=== PATIENT | female | born 1990 | race Caucasian/White ===

== ENCOUNTER 2018-03-27 04:48 | Emergency (ER) | payer BC ==
[~2018-03-27] VITALS: Ht 157.5 cm; Wt 85.3 kg
[2018-03-27 04:54] VITALS: BP 133/72
[2018-03-27] MEDS ORDERED: CLIN300C8 PO (05:45)
[2018-03-27] MEDS ORDERED: OXYC-323 PO (05:45)
[2018-03-27] MEDS ORDERED: MUPI22OI2 TP (05:45)
--- NOTE | 2018-03-27 05:46 | PHYS DOC ---
Past Medical History Past Medical History: No Pertinent History Past Surgical History: No Surgical History Alcohol Use: None Drug Use: None Adult General Chief Complaint Chief Complaint: ABSCESS HPI HPI Patient is a 27-year-old female who presents to the emergency department for evaluation. She was diagnosed with MRSA at [facility] this past Sunday. She was given a prescription for Bactrim, and hydrocodone. She states that the pain has persisted, and she has developed some soft tissue swelling extending to her forehead. She has had some low-grade fevers. She denies any chills. She denies any pain with ocular movement, headache, nausea, vomiting. She states she has had MRSA infections in the past. Palpation of the affected area worsens her pain. There are no alleviating factors to her symptoms. Review of Systems Review of Systems Constitutional: Denies lethargy or chills [] Eyes: Denies change in visual acuity, redness, or eye pain, or drainage [] HENT: Denies nasal congestion or sore throat [] GI: Denies abdominal pain, nausea, vomiting, bloody stools or diarrhea [] : Denies dysuria or hematuria , denies [] Neurologic: Denies headache, focal weakness or sensory changes [] Allergies Allergies Allergies Coded Allergies Type Severity Reaction Last Updated Verified vancomycin Allergy Intermediate Swelling 03/27/18 Yes Physical Exam Physical Exam PHYSICAL EXAM: CONSTITUTIONAL: Well developed, well nourished HEAD: normocephalic, atraumatic. On the left frontotemporal area, there is a kingsley size pustular lesion with a small scab and crater. There is soft tissue swelling extending to the anterior forehead, involving the upper eyelid, mildly , although there is no warmth or fluctuance or definite erythema to this area. EENT: PERRL, EOMI. the globes appear normal. There is no pain with ocular movement. There is no tenderness to palpation to the orbital or periorbital rim. Conjunctivae normal color, sclerae non-icteric; moist mucous membranes. NECK: Supple, non-tender; no meningismus. LUNGS: Lungs CTA, breathing even and unlabored. Normal air movement. HEART: Regular rate and rhythm, no murmur CHEST: No deformity; non-tender ABDOMEN: The abdomen is soft, and non-tender, no masses or bruits. EXTREM: Normal ROM; no deformity, no calf tenderness. Normal pulses palpable in all extremities. There is no pedal edema. SKIN: No rash; no diaphoresis NEURO: Alert; normal speech and cognition; CN's grossly intact; strength grossly intact without focal deficit. BACK: No CVA TTP. Current Patient Data Vital Signs Vital Signs Date Time Temp Pulse Resp B/P (MAP) Pulse Ox O2 Delivery O2 Flow Rate FiO2 03/27/18 04:54 99.5 90 22 133/72 (92) 96 Room Air 99.5 EKG EKG [] Radiology/Procedures Radiology/Procedures [] Course & Med Decision Making Course & Med Decision Making The patient appears to have an MRSA infection, she states she has had in the past. There is no abscess evident on exam, nothing that warrants incision and drainage. I will change her antibiotic to clindamycin. I will also prescribe her something strong for pain as well as topical mupirocin ointment. I discussed importance of close follow-up with her PCP, and return precautions for persistent or worsening symptoms. The patient's discretion medication history has been reviewed. Other than a prescription for hydrocodone No. 10 tablets 2 days ago, which the patient admitted to, she has had no controlled substances filled in the past year. Dragon Disclaimer Dragon Disclaimer This electronic medical record was generated, in whole or in part, using a voice recognition dictation system. Departure Departure Impression: Primary Impression: Facial cellulitis Disposition: 01 HOME, SELF-CARE Condition: STABLE Referrals: NO PCP (PCP) Patient Instructions: Cellulitis, Community-Associated MRSA, Facial Infection Scripts Oxycodone/Apap 5-325 (PERCOCET 5-325 MG TABLET) 1 Each Tablet 1 TAB PO PRN Q6HRS PRN for PAIN, #20 TAB 0 Refills Prov: LAUREN GORDILLO MD 03/27/18 Mupirocin (MUPIROCIN OINTMENT) 22 Gm Oint...g. 1 VAN TP TID for WOUND CARE, #1 TUBE Prov: LAUREN GORDILLO MD 03/27/18 Clindamycin Hcl (CLINDAMYCIN HCL) 300 Mg Capsule 1 CAP PO TID, #30 CAP Prov: LAUREN GORDILLO MD 03/27/18 LAUREN GORDILLO MD Mar 27, 2018 05:46
== END 2018-03-27 06:31 | disposition home or self-care (01) ==
LOC: ER 04:48
DX: L03.211 Cellulitis of face (principal)
CPT/HCPCS: 99283